=== PATIENT | male | born 1975 | race Caucasian/White ===

== ENCOUNTER 2017-09-25 10:09 | Observation (INO) | payer BC, OTHER ==
--- NOTE | 2017-09-25 11:20 | ED PDOC ---
Arrival/HPI - General Chief Complaint: Dizziness/Lightheaded Time Seen by Provider: 09/25/17 11:07 Historian: Patient - History of Present Illness Narrative History of Present Illness (Text): 09/25/17 11:16 42 year old male, with past medical history of diabetes, presents to the Emergency department complaining of dizziness since yesterday. Patient informs symptoms of "spinning room" and "falling down" worsening today bringing him to the Emergency department today. Patient informs compliance with diet and medications. Patient denies any fever, chills, nausea, vomiting, abdominal pain , diarrhea, chest pain, shortness of breath or any other complaints. PMD: Dr. Turner Time/Duration: 24 hours Symptom Onset: Gradual Symptom Course: Unchanged Activities at Onset: Light Context: Home Past Medical History - Provider Review Nursing Documentation Reviewed: Yes - Infectious Disease Hx of Infectious Diseases: None - Tetanus Immunization Tetanus Immunization: Unknown - Cardiac Hx Cardiac Disorders: No Hx Hypertension: Yes - Pulmonary Hx Respiratory Disorders: No Hx Asthma: No - Neurological Hx Neurological Disorder: No - HEENT Hx HEENT Disorder: No - Renal Hx Kidney Stones: Yes - Endocrine/Metabolic Hx Diabetes Mellitus Type 2: Yes - Hematological/Oncological Hx Blood Disorders: No - Integumentary Hx Dermatological Disorder: No - Musculoskeletal/Rheumatological Hx Falls: No - Gastrointestinal Hx Gastrointestinal Disorders: No - Genitourinary/Gynecological Hx Genitourinary Disorders: No - Psychiatric Hx Psychophysiologic Disorder: No Hx Depression: No Hx Emotional Abuse: No Hx Physical Abuse: No Hx Substance Use: No - Past Surgical History Past Surgical History: No Previous - Anesthesia Hx Anesthesia: No Hx Anesthesia Reactions: No Hx Malignant Hyperthermia: No - Suicidal Assessment Feels Threatened In Home Enviroment: No Family/Social History - Physician Review Nursing Documentation Reviewed: Yes Family/Social History: No Known Family HX Smoking Status: Light Smoker < 10 Cigarettes Daily Hx Alcohol Use: No Hx Substance Use: No Hx Substance Use Treatment: No Allergies/Home Meds Allergies/Adverse Reactions: Allergies No Known Allergies Allergy (Verified 09/25/17 10:51) Home Medications: Home Meds Medication Instructions Recorded Confirmed Metformin HCl 1,000 mg PO BID 12/18/14 09/25/17 Simvastatin [Zocor] 0 mg PO DAILY 09/25/17 09/25/17 Review of Systems - Physician Review All systems were reviewed & negative as marked: Yes - Review of Systems Constitutional: Normal. absent: Fevers Eyes: Normal ENT: Normal Respiratory: Normal. absent: SOB Cardiovascular: Normal. absent: Chest Pain Gastrointestinal: Normal. absent: Abdominal Pain, Diarrhea, Nausea, Vomiting Genitourinary Male: Normal Musculoskeletal: Normal Skin: Normal Neurological: Dizziness Endocrine: Normal Hemo/Lymphatic: Normal Psychiatric: Normal Physical Exam Vital Signs Reviewed: Yes Vital Signs Temp Pulse Resp BP Pulse Ox 09/25/17 16:13 98.3 F 70 20 131/84 99 09/25/17 14:07 77 18 134/83 98 09/25/17 10:46 98.1 F 92 H 20 124/78 98 Temperature: Afebrile Blood Pressure: Normal Pulse: Regular Respiratory Rate: Normal Appearance: Positive for: Well-Appearing, Non-Toxic, Comfortable Pain Distress: None Mental Status: Positive for: Alert and Oriented X 3 Finger Stick Blood Glucose: 232 - Systems Exam Head: Present: Atraumatic, Normocephalic Pupils: Present: PERRL Extroacular Muscles: Present: EOMI Conjunctiva: Present: Normal Mouth: Present: Moist Mucous Membranes Neck: Present: Normal Range of Motion Respiratory/Chest: Present: Clear to Auscultation, Good Air Exchange. No: Respiratory Distress, Accessory Muscle Use Cardiovascular: Present: Regular Rate and Rhythm, Normal S1, S2. No: Murmurs Abdomen: Present: Normal Bowel Sounds. No: Tenderness, Distention, Peritoneal Signs Back: Present: Normal Inspection Upper Extremity: Present: Normal Inspection. No: Cyanosis, Edema Lower Extremity: Present: Normal Inspection. No: Edema Neurological: Present: GCS=15, CN II-XII Intact, Speech Normal Skin: Present: Warm, Dry, Normal Color. No: Rashes Psychiatric: Present: Alert, Oriented x 3, Normal Insight, Normal Concentration Medical Decision Making ED Course and Treatment: 09/25/17 11:22 Impression: 42 year old male presents to the Emergency department for dizziness. Plan: -- CT of Head -- EKG -- Labs -- Antivert -- Unrinalysis -- Reassess and disposition Progress Notes: 09/25/17 11:58 EKG: Ordered, reviewed, and independently interpreted the EKG. Rate : 83 BPM Rhythm : NSR Interpretation : No ST-segment elevations or depressions, no T-wave inversions, normal intervals. 09/25/17 12:42 CT of head reviewed by radiologist, shows unremarkable unenhanced head CT. Incidental limited bilateral ethmoid sinusitis. 09/25/17 14:[address] Turner, who is aware and agrees with plan to admit patient to remote telemetry. - Lab Interpretations Lab Results: 09/25/17 11:30 09/25/17 11:30 Lab Results 09/25/17 11:30: Sodium 140, Potassium 4.1, Chloride 103, Carbon Dioxide 24, Anion Gap 17, BUN 12, Creatinine 0.7 L, Est GFR ( Amer) > 60, Est GFR ( Non-Af Amer) > 60, Random Glucose 308 H* D, Calcium 10.3, Magnesium 1.8, Total Bilirubin 0.4, AST 34, ALT 40, Alkaline Phosphatase 63, Lactate Dehydrogenase 334, Total Creatine Kinase 53, Troponin I < 0.01, Total Protein 7.2, Albumin 4.2 , Globulin 3.0, Albumin/Globulin Ratio 1.4 09/25/17 11:30: PT 12.0, INR 1.04, APTT 29.0 09/25/17 11:30: WBC 6.2 D, RBC 4.78, Hgb 13.9 L, Hct 40.7 L, MCV 85.1, MCH 29.1 , MCHC 34.2, RDW 12.6, Plt Count 270, MPV 9.4, Gran % 60.5, Lymph % (Auto) 32.3 , [place] % (Auto) 5.3, Eos % (Auto) 1.4 L, Baso % (Auto) 0.5, Gran # 3.77, Lymph # (Auto) 2.0, [place] # (Auto) 0.3, Eos # (Auto) 0.1, Baso # (Auto) 0.03 - RAD Interpretation Radiology Orders: 09/25/17 11:13 HEAD W/O CONTRAST [CT] Stat - Medication Orders Current Medication Orders: Atorvastatin Calcium (Lipitor) 10 mg PO DIN STEPHANIE Sodium Chloride (Sodium Chloride 0.45%) 1,000 mls @ 60 mls/hr IV .[id number] STEPHANIE Last Admin: 09/25/17 17:45 Dose: 60 mls/hr eMAR Start Stop Document 09/25/17 17:45 RDS (Rec: 09/25/17 17:45 RDS [id number]) Intravenous Solution Start Date 09/25/17 Start Time 17:45 Insulin Human Lispro (Humalog Low) 0 units SC ACHS STEPHANIE PRN Reason: Protocol Meclizine HCl (Antivert) 25 mg PO TID STEPHANIE Last Admin: 09/25/17 17:52 Dose: 25 mg Metformin HCl (Glucophage) 1,000 mg PO BID [facility] Last Admin: 09/25/17 17:52 Dose: 1,000 mg Discontinued Medications Aspirin (Aspirin) 325 mg PO STAT STA Stop: 09/25/17 14:04 Last Admin: 09/25/17 14:10 Dose: 325 mg Sodium Chloride (Sodium Chloride 0.9%) 1,000 mls @ 999 mls/hr IV .[id number] STA Stop: 09/25/17 15:06 Last Admin: 09/25/17 14:10 Dose: 999 mls/hr eMAR Start Stop Document 09/25/17 14:10 GMD (Rec: 09/25/17 14:10 GMD [facility]) Intravenous Solution Start Date 09/25/17 Start Time 14:10 End Date 09/25/17 End time 15:11 Total Infusion Time 61 Meclizine HCl (Antivert) 50 mg PO STAT STA Stop: 09/25/17 11:14 Last Admin: 09/25/17 11:43 Dose: 50 mg Meclizine HCl (Antivert) 25 mg PO Q6 PRN PRN Reason: Dizziness NIHSS Scale ([place]) Time Performed: 15:02 - How Severe is the Stoke Baseline Level of Consciousness: 0=Alert LOC to Questions: 0=Both comments correct LOC to commands: 0=Obeys both correctly Best Gaze: 0=Normal Visual: 0=No visual loss Facial: 0=Normal Motor Arm - Left: 0=No drift Motor Arm - Right: 0=No drift Motor Leg - Left: 0=No drift Motor Leg - Right: 0=No drift Limb Ataxia: 0=Absent Sensory: 0=Normal Best Language: 0=No aphasia Dysarthia: 0=Normal articulation Extinction & Inattention (Neglect): 0=Normal, no object Score: 0 Risk Level: No Stroke Risk rTPA Inclusion/Exclusion - Refusal of Treatment Patient Refused Treatment: No - Inclusion Criteria for Altepase Patient is 18 years or Older: Yes The Clinical Diagnosis of Ischemic Stroke That is Causing a Potentially Disabling Neurological Deficit: No Time of Onset is Well Established to be Less Than 270 Minute Before Treatment Would Begin: No Risk/Benefit Discussed With Patient/Family Member Present: No - Scribe Statement The provider has reviewed the documentation as recorded by the Scribe Garrett Carbone. All medical record entries made by the Scribe were at my direction and personally dictated by me. I have reviewed the chart and agree that the record accurately reflects my personal performance of the history, physical exam, medical decision making, and the department course for this patient. I have also personally directed, reviewed, and agree with the discharge instructions and disposition. Disposition/Present on Arrival - Present on Arrival Any Indicators Present on Arrival: No History of DVT/PE: No History of Uncontrolled Diabetes: Yes Urinary Catheter: No History of Decub. Ulcer: No History Surgical Site Infection Following: None - Disposition Have Diagnosis and Disposition been Completed?: Yes Diagnosis: Vertigo Disposition: HOSPITALIZED Disposition Time: 14:00 Patient Problems: Current Active Problems Problem Status Onset Vertigo Acute Condition: STABLE
[2017-09-25 11:55] LABS: BASO # 0.03 K/mm3 (0.0-2.0); BASO % 0.5 % (0.0-3.0); EOS # 0.1 (0.0-0.7); EOS % 1.4 % (1.5-5.0); GRAN # 3.77 (1.4-6.5); GRAN % 60.5 % (50.0-68.0); HEMOGLOBIN 13.9 g/dL (14.0-18.0); LYMPH % 32.3 % (22.0-35.0); MEAN CELL VOLUME 85.1 fl (80.0-105.0); MEAN CORPUSCULAR HEMOGLOBIN 29.1 pg (25.0-35.0); MEAN CORPUSCULAR HGB CONC 34.2 g/dl (31.0-37.0); MEAN PLATELET VOLUME 9.4 fl (7.0-11.0); MONO # 0.3 (0.1-0.6); MONO % 5.3 % (1.0-6.0); RBC 4.78 10^6/uL (3.5-6.1); RED CELL DISTRIBUTION WIDTH 12.6 % (11.5-14.5); WHITE BLOOD COUNT 6.2 10^3/ul (4.5-11.0)
[2017-09-25 12:07] LABS: INR 1.04 (0.93-1.08)
[2017-09-25 12:18] LABS: ALB/GLOB RATIO 1.4 (1.1-1.8); ALBUMIN 4.2 g/dL (3.0-4.8); ALT/SGPT 40 U/L (7-56); AST/SGOT 34 U/L (17-59); BLOOD UREA NITROGEN 12 mg/dL (7-21); CALCIUM 10.3 mg/dL (8.4-10.5); GFR AFRICAN-AMERICAN > 60; GFR NON-AFRICAN AMERICAN > 60; MAGNESIUM 1.8 mg/dL (1.7-2.2)
[2017-09-25 12:19] LABS: TROPONIN I < 0.01 ng/mL
--- NOTE | 2017-09-25 12:37 | CT ---
PROCEDURE: CT HEAD WITHOUT CONTRAST. HISTORY: vertigo COMPARISON: None available. TECHNIQUE: Axial computed tomography images were obtained through the head/brain without intravenous contrast. Radiation dose: Total exam DLP = 800.50 mGy-cm. This CT exam was performed using one or more of the following dose reduction techniques: Automated exposure control, adjustment of the mA and/or kV according to patient size, and/or use of iterative reconstruction technique. FINDINGS: HEMORRHAGE: No intracranial hemorrhage. BRAIN: Normal yeung-white matter differentiation and density are appreciated throughout the cerebrum and cerebellum with the brainstem appearing unremarkable as well. There is no mass effect. There is no suspicious extra-axial fluid collection and the midline brain anatomy appears diffusely unremarkable. VENTRICLES: Unremarkable. No hydrocephalus. CALVARIUM: Unremarkable. PARANASAL SINUSES: Mild bilateral ethmoid sinusitis changes are identified. MASTOID AIR CELLS: Unremarkable as visualized. No inflammatory changes. OTHER FINDINGS: None. IMPRESSION: Unremarkable unenhanced head CT as discussed above. Incidental limited bilateral ethmoid sinusitis. Follow up CT or MRI are available as clinically warranted.
[2017-09-25] MEDS ORDERED: Sodium Chloride 0.9% 1,000 ML IV STA (14:06)
--- NOTE | 2017-09-25 15:43 | CP.PCM.CON ---
<Brittany Irene - Last Filed: 09/25/17 17:30> History of Present Illness - History of Present Illness History of Present Illness: Neurology Consult: Vertigo Mr Martínez Moncada, 42M, c/o dizziness x 1 day with chest pain and palpitation. Patient informs symptoms of "spinning room" and "falling down" worsening today bringing him to the Emergency department today. Patient informs compliance with diet and medications. Pt is seen eating dounts and drinking coffee in the emergency room ROS: (+) headache, (+) blurry vision after eating, (+) dizziness with room spinning sensation. (+) legs are heavy Denies any fever, chills, nausea, vomiting, abdominal pain, diarrhea, chest pain , shortness of breath or any other complaints. Upon ED arrival, VS stable. Glucose is 308. EKG is NSR 83, No ST-segment elevations or depressions, no T-wave inversions, normal intervals. CT of head is unremarkable. Incidental limited bilateral ethmoid sinusitis. PMH: Diabetes mellitus Hx kidney stone PSH: denies Family history: denies any known history of colon or stomach cancer, otherwise noncontributory SH: Active smoker Denies EtOH, recreational drugs Allergies: NKDA Medications: Metformin and Simvastatin Past Patient History - Infectious Disease Hx of Infectious Diseases: None - Tetanus Immunizations Tetanus Immunization: Unknown - Past Social History Smoking Status: Light Smoker < 10 Cigarettes Daily - CARDIAC Hx Cardiac Disorders: No Hx Hypertension: Yes - PULMONARY Hx Respiratory Disorders: No Hx Asthma: No - NEUROLOGICAL Hx Neurological Disorder: No - HEENT Hx HEENT Problems: No - RENAL Hx Kidney Stones: Yes - ENDOCRINE/METABOLIC Hx Diabetes Mellitus Type 2: Yes - HEMATOLOGICAL/ONCOLOGICAL Hx Blood Disorders: No - INTEGUMENTARY Hx Dermatological Problems: No - MUSCULOSKELETAL/RHEUMATOLOGICAL Hx Falls: No - GASTROINTESTINAL Hx Gastrointestinal Disorders: No - GENITOURINARY/GYNECOLOGICAL Hx Genitourinary Disorders: No - PSYCHIATRIC Hx Psychophysiologic Disorder: No Hx Depression: No Hx Emotional Abuse: No Hx Physical Abuse: No Hx Substance Use: No - SURGICAL HISTORY Hx Surgeries: No - ANESTHESIA Hx Anesthesia: No Hx Anesthesia Reactions: No Hx Malignant Hyperthermia: No Meds Allergies/Adverse Reactions: Allergies Allergy/AdvReac Type Severity Reaction Status Date / Time No Known Allergies Allergy Verified 09/25/17 10:51 Physical Exam - Constitutional Appears: No Acute Distress - Head Exam Head Exam: ATRAUMATIC, NORMAL INSPECTION, NORMOCEPHALIC - Eye Exam Eye Exam: EOMI, Normal appearance, PERRL. absent: Scleral icterus Pupil Exam: NORMAL ACCOMODATION - ENT Exam ENT Exam: Mucous Membranes Moist - Neck Exam Additional comments: supple, no carotid bruits b/l - Respiratory Exam Respiratory Exam: Clear to Auscultation Bilateral, NORMAL BREATHING PATTERN. absent: Rales, Rhonchi, Wheezes - Cardiovascular Exam Cardiovascular Exam: REGULAR RHYTHM, +S1, +S2. absent: Systolic Murmur - GI/Abdominal Exam GI & Abdominal Exam: Normal Bowel Sounds, Soft. absent: Tenderness - Extremities Exam Extremities exam: Negative for: calf tenderness - Neurological Exam Neurological exam: Alert, CN II-XII Intact, Oriented x3 Additional comments: EOMI Speech: no aphasia Motor: move all extremitites equally Sensory: intact [id number] coordination: intact, no tremor - Psychiatric Exam Psychiatric exam: Normal Affect, Normal Mood - Skin Skin Exam: Dry, Warm Results - Vital Signs Recent Vital Signs: Last Vital Signs Temp 98.1 F 09/25/17 10:46 Pulse 77 09/25/17 14:07 Resp 18 09/25/17 14:07 BP 134/83 09/25/17 14:07 Pulse Ox 98 09/25/17 14:07 - Labs Result Diagrams: 09/25/17 11:30 09/25/17 11:30 Labs: Laboratory Results - last 24 hr 09/25/17 14:20 POC Glucose (mg/dL) 157 H Assessment & Plan - Assessment and Plan (Free Text) Plan: Mr Martínez Moncada, 42M, c/o dizziness x 1 day with chest pain and palpitation. Patient informs symptoms of "spinning room" and "falling down" worsening today bringing him to the Emergency department today. Patient informs compliance with diet and medications. Pt is seen eating dounts and drinking coffee in the emergency room. Benign paroxysmal positional vertigo (BPPV) secondary to mildly dehydration in the setting of hyperglycemia - maintain adequate hydration througout the day - salt restriction in diet - avoid sudden movement - meclizine 25 TID - maintain blood glucose 140-180 - maintain SBP 120-130 - outpatient vestibular therapy - ___Pending___MRI brain - ___Pending___Hb A1C - Carb consist/heart health diet - diebetic education s/r/d/w Dr. Barakat <Howie Barakat - Last Filed: 09/26/17 10:23> Meds - Medications Medications: Current Medications Atorvastatin Calcium (Lipitor) 10 mg PO DIN STEPHANIE Sodium Chloride (Sodium Chloride 0.45%) 1,000 mls @ 60 mls/hr IV .[id number] [facility] Last Admin: 09/26/17 09:31 Dose: 60 mls/hr Insulin Human Lispro (Humalog Low) 0 units SC ACHS [facility] PRN Reason: Protocol Last Admin: 09/26/17 09:22 Dose: Not Given Meclizine HCl (Antivert) 25 mg PO TID [facility] Last Admin: 09/26/17 09:21 Dose: 25 mg Metformin HCl (Glucophage) 1,000 mg PO BID [facility] Last Admin: 09/26/17 09:22 Dose: 1,000 mg Results - Vital Signs Recent Vital Signs: Last Vital Signs Temp 98.6 F 09/26/17 05:56 Pulse 63 09/26/17 05:56 Resp 20 09/26/17 05:56 BP 117/81 09/26/17 05:56 Pulse Ox 98 09/26/17 05:56 - Labs Result Diagrams: 09/25/17 11:30 09/25/17 11:30 Labs: Laboratory Results - last 24 hr 09/25/17 09/25/17 09/25/17 14:20 15:46 17:36 POC Glucose (mg/dL) 157 H 152 H 257 H Urine Color Urine Appearance Urine pH Ur Specific [place] Urine Protein Urine Glucose (UA) Urine Ketones Urine Blood Urine Nitrate Urine Bilirubin Urine Urobilinogen Ur Leukocyte Esterase 09/25/17 09/26/17 09/26/17 21:04 05:21 07:36 POC Glucose (mg/dL) 262 H 163 H Urine Color Yellow Urine Appearance Clear Urine pH 5.5 Ur Specific [place] 1.025 Urine Protein Negative Urine Glucose (UA) >=1000 Urine Ketones Negative Urine Blood Negative Urine Nitrate Negative Urine Bilirubin Negative Urine Urobilinogen 0.2 Ur Leukocyte Esterase Negative 09/26/17 08:06 POC Glucose (mg/dL) 177 H Urine Color Urine Appearance Urine pH Ur Specific [place] Urine Protein Urine Glucose (UA) Urine Ketones Urine Blood Urine Nitrate Urine Bilirubin Urine Urobilinogen Ur Leukocyte Esterase Attending/Attestation - Attestation I have personally seen and examined this patient.: Yes I have fully participated in the care of the patient.: Yes I have reviewed all pertinent clinical information: Yes
--- NOTE | 2017-09-25 17:37 | MRI ---
PROCEDURE: MRI of the brain dated 09/25/2017 HISTORY: Vertigo. COMPARISON: Comparison made with CT scan brain dated 09/25/2017. TECHNIQUE: Multiplanar, multisequence MR images of the brain were obtained without intravenous contrast enhancement. FINDINGS: HEMORRHAGE: No acute parenchymal, subarachnoid nor extra-axial hemorrhage. No evidence of hemosiderin deposition identified on gradient echo weighted sequence. DWI: No evidence of an acute or early subacute infarction seen on diffusion imaging. . BRAIN PARENCHYMA: There are no focal areas of abnormal signal seen within the substance of the brain. No obvious parenchymal nor extra-axial mass or collection identified on this noncontrast study. Minimal localized cortical atrophic changes seen in the superior frontal region. VENTRICLES: No obstructive hydrocephalus. CRANIUM: Unremarkable. ORBITS: Grossly unremarkable. PARANASAL SINUSES/MASTOIDS: The re- demonstrated are minimal mucosal thickening within left maxillary antrum and moderate mucosal thickening in the ethmoid air complex extending superiorly into the inferior margin of the frontal sinus. Mild mucosal thickening also noted in the sphenoid sinus. . Note is made of a small rounded soft tissue density apparently within or arising from the posterior aspect right nasal cavity. Consider ENT consultation to exclude a nasal polyp VASCULAR SYSTEM: Visualized major vascular flow voids at skull base are patent. OTHER FINDINGS: None. IMPRESSION: No acute intracranial hemorrhage or infarct. Mucoperiosteal inflammatory changes seen within the aforementioned paranasal sinuses. Possible nasal polyp posterior aspect right nasal cavity. Consider followup ENT consultation for further evaluation.
[2017-09-25] MEDS: Sodium Chloride 0.45% 1,000 ML IV SCH (17:45)
[2017-09-25 21:02] VITALS: BMI 28.3
[2017-09-25] MEDS ORDERED: Influenza Vaccine 60 mcg/0.5 mL SYR (4YR UP) IM ONE (21:02)
[2017-09-25] MEDS ORDERED: Pneumococcal 23-Valent Vaccine IM ONE (21:02)
[2017-09-25] MEDS: Insulin Lispro (humaLOG) LOW Coverage SC SCH (21:40)
--- NOTE | 2017-09-25 23:32 | CARD ---
APPROVED REPORT EKG Measurement Heart [id number] NM [id number] [id number] <Conclusion> Normal sinus rhythm with sinus arrhythmia Normal ECG
[2017-09-26 05:56] VITALS: O2SAT 98
[2017-09-26 06:55] LABS: PH,URINE 5.5 (4.7-8.0); URINE BILIRUBIN NEGATIVE (NEGATIVE); URINE BLOOD NEGATIVE (NEGATIVE); URINE GLUCOSE (UA) >=1000 mg/dL (NEGATIVE); URINE LEUKOCYTE ESTERASE NEGATIVE Leu/uL (NEGATIVE); URINE NITRATE NEGATIVE (NEGATIVE); URINE PROTEIN NEGATIVE mg/dL (<30 mg/dL); URINE UROBILINOGEN 0.2 E.U./dL (<1 E.U./dL)
[2017-09-26 07:06] LABS: URINE APPEARANCE CLEAR (CLEAR); URINE COLOR YELLOW (YELLOW)
[2017-09-26] MEDS: Insulin Lispro (humaLOG) LOW Coverage SC SCH ×3 (09:22→17:04)
[2017-09-26] MEDS: Sodium Chloride 0.45% 1,000 ML IV SCH (09:31)
[2017-09-26 17:21] VITALS: BP 120/89; PULSE 76; RESP 20; TEMP 98.1
--- NOTE | 2017-09-26 18:48 | PN ---
DATE: 09/26/2017 SUBJECTIVE: The patient is seen and examined at the bedside. No longer dizzy much better. MRI of the brain showed no acute intracranial abnormalities. Blood sugar is slightly above 200, otherwise clinically stable and will be discharged home today and followed up as outpatient. PAST MEDICAL HISTORY: History of hypertension. SOCIAL HISTORY: No illicit drug use, smoking, or EtOH abuse. FAMILY HISTORY: Noncontributory. ALLERGIES: NO KNOWN DRUG ALLERGIES. MEDICATIONS: Reviewed by nurse's reconciliation sheet. REVIEW OF SYSTEMS: A 14-point review of systems is negative except as per the HPI. PHYSICAL EXAMINATION: VITAL SIGNS: Temperature 98.1, pulse rate 76, blood pressure 120/89, respiratory rate of 20. GENERAL: The patient is sitting up in bed, in no acute distress. HEENT: Atraumatic, normocephalic. PERRLA. Extraocular muscles intact. NECK: Supple. No JVD, no adenopathy noted. LUNGS: Clear to auscultation. No adventitious sounds. HEART: S1 and S2. Normal rate and rhythm. No murmurs, rubs, or gallops. ABDOMEN: Soft, nontender, and nondistended. Bowel sounds are present. EXTREMITIES: No clubbing. No cyanosis. Peripheral pulses 2+ felt bilaterally. NEUROLOGIC: The patient is alert and oriented to person, place, month and year. Speech is fluent without any errors. Cranial nerves II through XII intact. Motor: Moves all extremities equally. Toes are downgoing bilaterally. Sensory: Light touch, pinprick, proprioception, and vibration are intact. DTRs are 2+ throughout. Coordination: Goywnh-ke-cwos intact. Gait is deferred for now. LABORATORY DATA: Today's blood sugar is 163. ASSESSMENT AND PLAN: This is a 42-year-old man with no significant past medical history hypertension who presented with dizziness and palpitations and room spinning and felt like falling down, was found to be hyperglycemic when he came in. He was also mildly dehydrated. He is currently status post IV fluids. MRI of the brain showed no acute intracranial abnormality. IMPRESSION: Benign paroxysmal positional vertigo secondary to mild dehydration in the setting of hyperglycemia. 1. Recommend maintain adequate hydration throughout the day. 2. Salt restriction diet. 3. Avoid sudden movements. 4. Meclizine 25 mg p.o. t.i.d. 5. Maintain blood glucose between 140 to 180. 6. Maintain blood pressure between 120 to 130. 7. Baby aspirin 81 mg p.o. daily. 8. Follow up as an outpatient. Once again, thank you for this followup. Howie Barakat MD
--- NOTE | 2017-09-28 10:35 | HP ---
DATE: REASON FOR ADMISSION: Dizziness. HISTORY OF PRESENT ILLNESS: This is a 42-year-old male with history of diabetes, hypertension, high cholesterol, and noncompliance, came into the hospital because of severe dizziness. The patient got up from sleep at home, he tried to get up and he felt so dizzy, the whole room is spinning upside down and he could not walk. The patient his job to cancel and he stayed home. He could not keep up with this, came to the ER for further evaluation. The patient moves all extremities. He has no speech problem or dysphagia. He is just dizzy, spinning the room around him. No nausea, no vomiting, no other complaints. He did not take most of his medications. Also noted, the patient works 2 jobs, extremely like sleep 4 days a week and the rest of the week, he is comfortable and he sleeps more than that. The patient gives no history of any cardiac or any cerebrovascular disease in the past. SOCIAL HISTORY: He is ; has children, supportive and he smokes less than 10 cigarettes a day for years. No drugs. No alcohol. FAMILY HISTORY: Noncontributory. MEDICATIONS: He does supposedly takes Zocor 20 mg once a day, metformin 1000 mg b.i.d., Januvia but apparently he did not get it, and also, he takes his blood pressure medicine, I believe lisinopril 5 mg or 10 mg daily. ALLERGIES: NO KNOWN ALLERGIES. PHYSICAL EXAMINATION GENERAL: The patient is lying in bed comfortable, not feeling dizzy, but he feels sense of can get dizzy. There is no nystagmus, no respiratory distress, no chest pain and no acute distress. VITAL SIGNS: His temperature 98, heart rate 65, blood pressure 147/87, respiratory rate 20, saturating 100%. HEAD AND NECK: Normal. No JVD. No thyromegaly. CHEST: Clear. Good air entry. CARDIAC: First sound and second sound normal. ABDOMEN: Soft, obese, nontender. EXTREMITIES: No edema. NEUROLOGIC: Seems normal. LABORATORY DATA: Shows white count 6.2, hemoglobin , hematocrit 40.7, and platelets 270,000. His chemistry is noted for sodium 140, potassium 4.1, chloride 103, bicarbonate 24, BUN 12, creatinine 0.7. Blood sugar is 308 and calcium 10.3, magnesium 1.8. Total bilirubin and liver function test is normal. Troponin is negative. Total protein is 7.2 which is normal. The patient also runs hemoglobin A1c, which was 9.7 which is reflecting poor control of his diabetes. His PT and PTT was normal. PT 12, INR 1.04, PTT 29. Urinalysis is normal. The patient did have head CT, which was negative for bleed. He did have also EKG, which was normal sinus rhythm, no acute ST-T changes, normal EKG. The patient also had seen by Neurology, Dr. Howie Barakat, brain MRI was negative and case was discussed with Dr. Howie Barakat and recommendation is to discharge the patient on meclizine. ADMITTING DIAGNOSES 1. 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 2. Diabetes, poor control. 3. Hypertension. 4. Hypercholesterolemia. 5. Overweight. PLAN: Plan is to continue all his medications including better control of his diet and compliance of his medication. We will give him metformin 1000 mg b.i.d., Onglyza 5 mg once a day. Monitor his sugar on a regular basis and follow up in the office. Continue baby aspirin 81 mg once a day, meclizine 25 mg 3 times a day, Zocor 20 mg p.o. at bedtime. We will give him time off from work until his symptoms get better. We will also follow up with his neurologist in the office, Dr. Howie Barakat. Case has been discussed with Dr. Howie Barakat. Okay to discharge. DISCHARGE DIAGNOSES 1. 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 2. Diabetes, poor control. 3. Hypertension. 4. Hypercholesterolemia. 5. Overweight. Arpit Turner MD
== END 2017-09-26 18:10 | disposition home or self-care (01) ==
LOC: ED 10:09 → ERH 14:06 → 2RSO 17:23
PROVIDERS: ADMIT Internal Medicine; ATTEND Internal Medicine
DX: E11.65 Type 2 diabetes mellitus with hyperglycemia (principal); E86.0 Dehydration; H81.10 Benign paroxysmal vertigo, unspecified ear; E78.00 Pure hypercholesterolemia, unspecified; E66.3 Overweight; I10 Essential (primary) hypertension; Z79.82 Long term (current) use of aspirin; Z87.442 Personal history of urinary calculi; Z91.19 Patient's noncompliance with other medical treatment and regimen; F17.210 Nicotine dependence, cigarettes, uncomplicated; R40.2412 Glasgow coma scale score 13-15, at arrival to emergency department; Z68.28 Body mass index [BMI] 28.0-28.9, adult
CPT/HCPCS: 36415; 70450; 70551; 80053; 81003; 82550; 82948; 83036; 83615; 83735; 84484; 85025; 85610; 85730; 93005; 96360; 99285; G0378; J7030; J7040